=== PATIENT | female | born 1965 | race Caucasian/White ===

== ENCOUNTER 2016-10-29 08:16 | Emergency (ER) | payer BC ==
[2016-10-29 08:54] VITALS: BP 129/64
--- NOTE | 2016-10-29 08:58 | UC ---
Respiratory Complaint HPI - HPI Summary HPI Summary: SINCE YESTERDAY, HEADACHE AND BODYACHES. NO COUGH, FEVER OR CHILLS. 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 NO N/V/D. Started with ORTA yesterday, mostly over her forehead. Of note, she has not had meningitis vaccine since 2009 as she was told she only needed 1x vaccine, but has had pneumonia vaccine within 5 yrs. Dtr and grandson both have had meningitis in past. she denies any stiff neck, nausea or photophobia. - History of Current Complaint Chief Complaint: UCGeneralIllness Stated Complaint: ACHY HEAD CONGESTION Time Seen by Provider: 10/29/16 08:49 Hx Last Menstrual Period: UTERINE ABLATION TWO YEARS AGO - Allergies/Home Medications Allergies/Adverse Reactions: Allergies Allergy/AdvReac Type Severity Reaction Status Date / Time Ipratropium [From Atrovent] Allergy Severe Difficulty Verified 10/29/16 08:43 Breathing Bee Venom Allergy Shortness Verified 10/29/16 08:43 of Breath Penicillins Allergy Unknown Verified 10/29/16 08:43 Reaction Details Sulfa Drugs Allergy Unknown Verified 10/29/16 08:43 Reaction Details Home Medications: Home Medications Naproxen Sodium 440 mg PO Q12H PRN 10/29/16 [History Confirmed 10/29/16] PMH/Surg Hx/FS Hx/Imm Hx Previously Healthy: Yes Endocrine History Of: Reports: Diabetes Respiratory History Of: Reports: Asthma - Surgical History Surgical History: Yes Surgery Procedure, Year, and Place: Uterine Ablation, 2014, [place]; Spleenectomy s/p Splenic Artery Aneurysm, 2009, [facility]; Cholecystectomy, 2006, [place]; C-Sections, 1983 1988 1997; Tonsillectomy, ~1979, [place] - Family History Known Family History: Positive: Hypertension, Other - no asthma or lung ca in family. Dtr and grandson meningitis survivors. - Social History Alcohol Use: Rare Substance Use Type: None Smoking Status (MU): Light Every Day Tobacco Smoker Type: Cigarettes Amount Used/How Often: 3 CIGS A DAY Length of Time of Smoking/Using Tobacco: On and Off for 36 Years Have You Smoked in the Last Year: Yes When Did the Patient Quit Smoking/Using Tobacco: 09/19/15 - Immunization History Most Recent Influenza Vaccination: Not the 2016/2016 Season Review of Systems Constitutional: Chills, Fatigue Skin: Negative Eyes: Negative ENT: Negative Respiratory: Negative Cardiovascular: Negative Gastrointestinal: Negative Genitourinary: Negative Motor: Negative Neurovascular: Negative Musculoskeletal: Negative Neurological: Headache - over forehead only, worse with bending fwd. Psychological: Negative All Other Systems Reviewed And Are Negative: Yes Physical Exam Triage Information Reviewed: Yes Appearance: Well-Nourished, Ill-Appearing - mild distress Vital Signs: Initial Vital Signs Temp 98 F 10/29/16 08:46 Pulse 64 10/29/16 08:46 Resp 18 10/29/16 08:46 BP 129/64 10/29/16 08:46 Pulse Ox 100 10/29/16 08:46 Vital Signs Reviewed: Yes Eye Exam: Normal ENT: Positive: Hearing grossly normal, Pharynx normal, TMs normal, Other: - + b/ l frontal and maxillary tenederness Dental Exam: Normal Neck exam: Normal Neck: Positive: Supple, Nontender, No Lymphadenopathy Respiratory Exam: Normal Respiratory: Positive: Lungs clear, Normal breath sounds, No respiratory distress, No accessory muscle use Cardiovascular Exam: Normal Cardiovascular: Positive: RRR, No Murmur, Pulses Normal, Brisk Capillary Refill Abdominal Exam: Normal Abdomen Description: Positive: Nontender, Soft Musculoskeletal Exam: Normal Neurological Exam: Normal Psychological Exam: Normal Skin Exam: Normal UC Diagnostic Evaluation - Laboratory O2 Sat by Pulse Oximetry: 100 Respiratory Course/Dx - Course Course Of Treatment: Rapid flu is neg. She has taken cephalosporins without any issues in past. discussed low risk of allergic rxn with PCN allergy. watch for any signs of allergic reaction that are reviewed today and seek immediate medical care if such occurs. - Differential Dx/Diagnosis Differential Diagnosis/HQI/PQRI: Influenza, Sinusitis, Other - Viral syndrome Provider Diagnoses: sinusitis Discharge - Discharge Plan Condition: Stable Disposition: HOME Prescriptions: Cefdinir [Cefdinir 300 MG CAP] 300 mg PO BID #20 cap Patient Education Materials: Sinusitis (ED) Forms: *Work Release Referrals: Nela Castillo MD [Primary Care Provider] - 3 Days Additional Instructions: It is strongly recommended that you get meningitis vaccine and pneumonia vaccines every 5 yrs due to splenectomy. you should make an appt at your PCP to have this done as soon as your symptoms have all resolved. I have printed the guidelines for you. Make sure that you take a probiotic every day while on the antibiotic.
== END 2016-10-29 10:04 | disposition home or self-care (01) ==
LOC: UCCORT 08:16
DX: J32.9 Chronic sinusitis, unspecified (principal); Z88.0 Allergy status to penicillin; Z88.2 Allergy status to sulfonamides; Z90.49 Acquired absence of other specified parts of digestive tract; Z90.81 Acquired absence of spleen; F17.210 Nicotine dependence, cigarettes, uncomplicated
CPT/HCPCS: 87502; 99212; G0463

== ENCOUNTER 2016-12-28 19:13 | Emergency (ER) | payer BC ==
[2016-12-28 19:31] VITALS: BP 131/78
--- NOTE | 2016-12-28 19:39 | UC ---
Throat Pain/Nasal Teo HPI - HPI Summary HPI Summary: incrasing sinus pressure and cough with wheezing, escalated today - History of Current Complaint Chief Complaint: UCRespiratory Stated Complaint: SINUSES Time Seen by Provider: 12/28/16 19:29 Hx Obtained From: Patient Hx Last Menstrual Period: ablation ?: No Onset/Duration: Sudden Onset, Lasting Days Severity: Moderate Associated Signs & Symptoms: Positive: Wheezing, Hoarseness, Sinus Discomfort, Nasal Discharge - Epiglottits Risk Factors Epiglottis Risk Factors: Negative - Allergies/Home Medications Allergies/Adverse Reactions: Allergies Allergy/AdvReac Type Severity Reaction Status Date / Time Ipratropium [From Atrovent] Allergy Severe Difficulty Verified 10/29/16 08:43 Breathing Bee Venom Allergy Shortness Verified 10/29/16 08:43 of Breath Penicillins Allergy Unknown Verified 10/29/16 08:43 Reaction Details Sulfa Drugs Allergy Unknown Verified 10/29/16 08:43 Reaction Details PMH/Surg Hx/FS Hx/Imm Hx Previously Healthy: Yes Endocrine History Of: Reports: Diabetes Respiratory History Of: Reports: Asthma - Surgical History Surgical History: Yes Surgery Procedure, Year, and Place: Uterine Ablation, 2014, [place]; Spleenectomy s/p Splenic Artery Aneurysm, 2009, [facility]; Cholecystectomy, 2006, [place]; C-Sections, 1983 1988 1997; Tonsillectomy, ~1978, [place] - Family History Known Family History: Positive: Hypertension, Other - no asthma or lung ca in family. Dtr and grandson meningitis survivors. - Social History Alcohol Use: Rare Substance Use Type: None Smoking Status (MU): Light Every Day Tobacco Smoker Type: Cigarettes Amount Used/How Often: 3 CIGS A DAY Length of Time of Smoking/Using Tobacco: On and Off for 36 Years Have You Smoked in the Last Year: Yes When Did the Patient Quit Smoking/Using Tobacco: 09/19/15 - Immunization History Most Recent Influenza Vaccination: Not the 2016/2016 Season Review of Systems Constitutional: Chills, Fatigue Skin: Negative Eyes: Negative ENT: Sore Throat, Ear Ache, Nasal Discharge Respiratory: Shortness Of Breath, Cough Cardiovascular: Negative Gastrointestinal: Negative Genitourinary: Negative Motor: Negative Neurovascular: Negative Musculoskeletal: Negative Neurological: Headache Psychological: Negative All Other Systems Reviewed And Are Negative: Yes Physical Exam Triage Information Reviewed: Yes Appearance: Well-Nourished, Ill-Appearing, Pain Distress Vital Signs: Initial Vital Signs Temp 96.8 F 12/28/16 19:28 Pulse 68 12/28/16 19:28 Resp 16 12/28/16 19:28 BP 131/78 12/28/16 19:28 Pulse Ox 100 12/28/16 19:28 Vital Signs Reviewed: Yes Eye Exam: Normal Eyes: Positive: Conjunctiva Inflamed, Other: - sclear red and eyes itchy ENT Exam: Normal ENT: Positive: Pharyngeal erythema, Nasal congestion, Nasal drainage, TM bulging Dental Exam: Normal Neck exam: Normal Neck: Positive: Supple, Nontender, No Lymphadenopathy Respiratory Exam: Normal Respiratory: Positive: Chest non-tender, No accessory muscle use, Wheezing, Inspiration Cardiovascular Exam: Normal Cardiovascular: Positive: RRR, No Murmur, Pulses Normal Abdominal Exam: Normal Abdomen Description: Positive: Nontender, No Organomegaly, Soft Bowel Sounds: Positive: Present Musculoskeletal Exam: Normal Musculoskeletal: Positive: Strength Intact, ROM Intact, No Edema Neurological Exam: Normal Neurological: Positive: Alert, Muscle Tone Normal Psychological Exam: Normal Skin Exam: Normal Throat Pain/Nasal Course/Dx - Course Course Of Treatment: hx obtained, exam performed, meds reviewed, treated for sinusitis and wheezing - Differential Dx/Diagnosis Differential Diagnosis/HQI/PQRI: Laryngitis, Otitis Media, Pharyngitis, Sinusitis, URI Provider Diagnoses: wheezing. sinusitis Discharge - Discharge Plan Condition: Stable Disposition: HOME Prescriptions: Azithromycin TAB* [Zithromax TAB (Z-ZAINAB) 250 mg #6 tabs] 2 tab PO .TODAY, THEN 1 DAILY #1 zainab predniSONE TAB* [Deltasone TAB*] 40 mg PO DAILY #14 tab Patient Education Materials: Sinusitis (ED) Referrals: Nela Castillo MD [Primary Care Provider] - Additional Instructions: 1. take the medication as prescribed 2. increase your fluid intake and get plenty of rest.
== END 2016-12-28 19:48 | disposition home or self-care (01) ==
LOC: UCCORT 19:13
DX: J32.9 Chronic sinusitis, unspecified (principal); J45.909 Unspecified asthma, uncomplicated; E11.9 Type 2 diabetes mellitus without complications; Z90.81 Acquired absence of spleen; Z90.49 Acquired absence of other specified parts of digestive tract; Z88.0 Allergy status to penicillin; Z88.2 Allergy status to sulfonamides; Z88.8 Allergy status to other drugs, medicaments and biological substances; Z91.030 Bee allergy status; Z72.0 Tobacco use
CPT/HCPCS: 99212; G0463

== ENCOUNTER 2017-03-04 09:54 | Emergency (ER) | payer BC ==
[2017-03-04 10:24] VITALS: BP 123/74
--- NOTE | 2017-03-04 10:37 | UC ---
Throat Pain/Nasal Teo HPI - HPI Summary HPI Summary: has had sinus symptoms for a number of days now with right otalgia and right upper gum and dental pain low energy hx splenectomy no f/c - History of Current Complaint Chief Complaint: UCHeadache Stated Complaint: SINUS HEADACHE RIGHT EAR COMPLAINT Time Seen by Provider: 03/04/17 10:11 Hx Obtained From: Patient Hx Last Menstrual Period: ablation Onset/Duration: Gradual Onset, Lasting Days Severity: Moderate Pain Intensity: 6 Pain Scale Used: 0-10 Numeric Cough: None Associated Signs & Symptoms: Positive: Sinus Discomfort, Nasal Discharge - Epiglottits Risk Factors Epiglottis Risk Factors: Negative - Allergies/Home Medications Allergies/Adverse Reactions: Allergies Allergy/AdvReac Type Severity Reaction Status Date / Time Ipratropium [From Atrovent] Allergy Severe Difficulty Verified 03/04/17 10:03 Breathing Bee Venom Allergy Shortness Verified 03/04/17 10:03 of Breath Penicillins Allergy Unknown Verified 03/04/17 10:03 Reaction Details Sulfa Drugs Allergy Unknown Verified 03/04/17 10:03 Reaction Details PMH/Surg Hx/FS Hx/Imm Hx Previously Healthy: Yes - Surgical History Surgical History: Yes Surgery Procedure, Year, and Place: Uterine Ablation, 2014, [place]; Spleenectomy s/p Splenic Artery Aneurysm, 2009, [facility]; Cholecystectomy, 2006, [place]; C-Sections, 1983 1988 1997; Tonsillectomy, ~1978, [place] - Family History Known Family History: Positive: Hypertension, Other - no asthma or lung ca in family. Dtr and grandson meningitis survivors. - Social History Alcohol Use: None Substance Use Type: None Smoking Status (MU): Light Every Day Tobacco Smoker Type: Cigarettes Amount Used/How Often: 3 CIGS A DAY Length of Time of Smoking/Using Tobacco: On and Off for 36 Years Have You Smoked in the Last Year: Yes When Did the Patient Quit Smoking/Using Tobacco: 09/19/15 - Immunization History Most Recent Influenza Vaccination: Not the 2016/2016 Season Review of Systems Constitutional: Negative Skin: Negative Eyes: Negative ENT: Dental Pain, Ear Ache, Nasal Discharge, Sinus Congestion, Sinus Pain/ Tenderness Respiratory: Cough Cardiovascular: Negative Gastrointestinal: Negative Genitourinary: Negative Motor: Negative Neurovascular: Negative Musculoskeletal: Negative Neurological: Negative Psychological: Negative All Other Systems Reviewed And Are Negative: Yes Physical Exam Triage Information Reviewed: Yes Appearance: Well-Appearing, No Pain Distress, Well-Nourished Vital Signs: Initial Vital Signs Temp 99 F 03/04/17 10:08 Pulse 79 03/04/17 10:08 Resp 18 03/04/17 10:08 BP 123/74 03/04/17 10:08 Pulse Ox 98 03/04/17 10:08 Eyes: Positive: Conjunctiva Clear ENT: Positive: TMs normal. Negative: Hearing grossly normal, Nasal congestion, Nasal drainage, Tonsillar swelling, Tonsillar exudate, Trismus, Muffled/hoarse voice Neck: Positive: Nontender, No Lymphadenopathy Respiratory: Positive: Lungs clear, Normal breath sounds, No respiratory distress, No accessory muscle use Cardiovascular: Positive: RRR, No Murmur Musculoskeletal: Positive: ROM Intact, No Edema Neurological: Positive: Alert Psychological: Positive: Age Appropriate Behavior Skin Exam: Normal Throat Pain/Nasal Course/Dx - Differential Dx/Diagnosis Provider Diagnoses: acute sinusitis Discharge - Discharge Plan Condition: Stable Disposition: HOME Prescriptions: Clarithromycin TAB* [Biaxin 500 MG TAB*] 500 mg PO BID #20 tab Fluticasone NASAL SPRAY 50MCG* [Flonase NASAL SPRAY 50MCG*] 2 spray BOTH NARES DAILY #1 btl Patient Education Materials: Sinusitis (ED) Forms: *Work Release Referrals: Nela Castillo MD [Primary Care Provider] - 4 Days
== END 2017-03-04 10:49 | disposition home or self-care (01) ==
LOC: UCCORT 09:54
DX: J01.90 Acute sinusitis, unspecified (principal); F17.210 Nicotine dependence, cigarettes, uncomplicated
CPT/HCPCS: 99212; G0463

== ENCOUNTER 2017-04-02 20:15 | Emergency (ER) | payer BC ==
[2017-04-02 20:24] VITALS: BP 145/85
--- NOTE | 2017-04-02 20:36 | UC ---
Back Pain HPI - HPI Summary HPI Summary: 51 YEAR OLD FEMALE WITH A PAST SURGICAL HISTORY OF A SPLENIC VS AORTA ANEURYSM PRESENTS WITH COMPLAINS OF SEVERE CHEST PAIN WITH RADIATION BETWEEN THE SHOULDER BLADES. - History of Current Complaint Chief Complaint: UCBackPain Stated Complaint: UPPER RT BACK PAIN Time Seen by Provider: 04/02/17 20:26 Hx Obtained From: Patient Hx Last Menstrual Period: tubal, ablation 2013 Onset/Duration: Sudden Onset Timing: Constant Severity Initially: Moderate Severity Currently: Moderate Pain Scale Used: 0-10 Numeric - 5 Character: Sharp Aggravating: Movement - Allergies/Home Medications Allergies/Adverse Reactions: Allergies Allergy/AdvReac Type Severity Reaction Status Date / Time Ipratropium [From Atrovent] Allergy Severe Difficulty Verified 04/02/17 20:31 Breathing Bee Venom Allergy Shortness Verified 04/02/17 20:31 of Breath Penicillins Allergy Unknown Verified 04/02/17 20:31 Reaction Details Sulfa Drugs Allergy Unknown Verified 04/02/17 20:31 Reaction Details PMH/Surg Hx/FS Hx/Imm Hx Previously Healthy: Yes - Surgical History Surgical History: Yes Surgery Procedure, Year, and Place: Uterine Ablation, 2014, [place]; Spleenectomy s/p Splenic Artery Aneurysm, 2009, [facility]; Cholecystectomy, 2006, [place]; C-Sections, 1983 1988 1997; Tonsillectomy, ~1978, [place] - Family History Known Family History: Positive: Hypertension, Other - no asthma or lung ca in family. Dtr and grandson meningitis survivors. - Social History Alcohol Use: Rare Substance Use Type: None Smoking Status (MU): Light Every Day Tobacco Smoker Type: Cigarettes Amount Used/How Often: 3 CIGS A DAY Length of Time of Smoking/Using Tobacco: On and Off for 36 Years Have You Smoked in the Last Year: Yes When Did the Patient Quit Smoking/Using Tobacco: 09/19/15 - Immunization History Most Recent Influenza Vaccination: Not the 2016/2016 Season Review of Systems Constitutional: Negative Skin: Negative Eyes: Negative ENT: Negative Respiratory: Negative Cardiovascular: Chest Pain Gastrointestinal: Negative Genitourinary: Negative Motor: Negative Neurovascular: Negative Musculoskeletal: Negative Neurological: Negative Psychological: Negative All Other Systems Reviewed And Are Negative: Yes Physical Exam Triage Information Reviewed: Yes Vital Signs: Initial Vital Signs Temp 36.6 C 04/02/17 20:20 Pulse 75 04/02/17 20:20 Resp 14 04/02/17 20:20 BP 145/85 04/02/17 20:20 Pulse Ox 100 04/02/17 20:20 Eye Exam: Normal ENT Exam: Normal Dental Exam: Normal Neck exam: Normal Neck: Positive: 1 Respiratory Exam: Normal Cardiovascular Exam: Normal Abdominal Exam: Normal Musculoskeletal: Positive: Other: - BACK PAIN Neurological Exam: Normal Psychological Exam: Normal Skin Exam: Normal Back Pain Course/Dx - Differential Dx/Diagnosis Provider Diagnoses: CHEST PAIN Discharge - Discharge Plan Condition: Stable Disposition: HOME Patient Education Materials: Chest Pain (ED) Referrals: Nela Castillo MD [Primary Care Provider] - Additional Instructions: PLEASE GO TO ER TO RULE OUT DISSECTION
== END 2017-04-02 20:57 | disposition home or self-care (01) ==
LOC: UCCORT 20:15
DX: R07.89 Other chest pain (principal); M54.6 Pain in thoracic spine; Z88.0 Allergy status to penicillin; Z88.2 Allergy status to sulfonamides; Z88.8 Allergy status to other drugs, medicaments and biological substances; Z91.030 Bee allergy status; Z87.891 Personal history of nicotine dependence
CPT/HCPCS: 93005; 99211; G0463

== ENCOUNTER 2019-11-01 12:12 | Emergency (ER) | payer OTHER ==
[2019-11-01 13:52] VITALS: BP 130/70
--- NOTE | 2019-11-01 14:11 | UC ---
Throat Pain/Nasal Teo HPI - HPI Summary HPI Summary: 54-year-old woman comes in with chief complaint of influenza-like symptoms started 4 days ago. Had a sudden onset of feeling ill with mostly a runny nose and some postnasal drip. Overtime the rhinorrhea has decreased and patient feels like the infection is gone into her chest. Initially she had a fever of 100.7. Since then no more fevers measured. She does have a cough. She denies feeling short of breath. No recent travel no known coronavirus contacts. Patient is asplenic. Has had some body aches. - History of Current Complaint Chief Complaint: UCGeneralIllness Stated Complaint: SINUS, COUGH, CONGESTION, FEVER Time Seen by Provider: 11/01/19 13:53 Hx Last Menstrual Period: tubal, ablation 2013 Pain Intensity: 0 - Allergies/Home Medications Allergies/Adverse Reactions: Allergies Allergy/AdvReac Type Severity Reaction Status Date / Time MS Ipratropium Allergy Severe Difficulty Verified 11/01/19 13:53 [From Atrovent] Breathing esomeprazole [From Nexium] Allergy Unknown Verified 11/01/19 13:53 Reaction Details MS Bee Venom [Bee Venom] Allergy Shortness Verified 11/01/19 13:53 of Breath MS Penicillins [Penicillins] Allergy Unknown Verified 11/01/19 13:53 Reaction Details MS Sulfa Drugs [Sulfa Drugs] Allergy Unknown Verified 11/01/19 13:53 Reaction Details Home Medications: Home Medications Albuterol HFA INHALER* [Ventolin HFA Inhaler*] 1 - 2 puff INH Q4H PRN 01/29/13 [ History Confirmed 11/01/19] LoraTADine TAB(NF) [Claritin 10 MG TAB(NF)] 10 mg PO BEDTIME 01/29/13 [History Confirmed 11/01/19] EPINEPHrine PEN ADULT(NF) [Epipen ADULT(NF)] 0.3 mg IM ONCE 06/10/13 [History Confirmed 11/01/19] Acetaminophen [Tylenol] 1,000 mg PO Q6H PRN 07/30/13 [History Confirmed 11/01/19 ] metFORMIN* [Glucophage 1000 MG TAB *] 1,000 mg PO BID 05/14/15 [History Confirmed 11/01/19] Multivitamins/Minerals TAB* [Thera M Plus TAB*] 1 tab PO DAILY 12/18/15 [ History Confirmed 11/01/19] Aspirin 81 mg CHEW TAB* 81 mg PO DAILY 11/01/19 [History Confirmed 11/01/19] Clopidogrel TAB* [Plavix TAB*] 1 dose PO DAILY 11/01/19 [History Confirmed 10/31] DOXYcycline CAP(*) [DOXYcycline 100MG CAP(*)] 100 mg PO BID #20 cap 11/01/19 [Rx ] Dapagliflozin Propanediol [Farxiga] 5 mg PO DAILY 11/01/19 [History Confirmed ] Insulin Glargine,Hum.rec.anlog [Lantus 100 units/ml 10 ml VIAL (*)] 44 units SUBCUT DAILY 11/01/19 [History Confirmed 11/01/19] Metoprolol Tartrate TAB* [Lopressor TAB*] 25 mg PO DAILY 11/01/19 [History Confirmed 11/01/19] Rosuvastatin (NF) [Crestor (NF)] 10 mg PO DAILY 11/01/19 [History Confirmed ] PMH/Surg Hx/FS Hx/Imm Hx Previously Healthy: Yes - asplenic Endocrine History: Diabetes, Dyslipidemia Cardiovascular History: Hypertension Respiratory History: Asthma - Surgical History Surgical History: Yes Surgery Procedure, Year, and Place: Uterine Ablation, 2014, [place]; Spleenectomy s/p Splenic Artery Aneurysm, 2009, [facility]; Cholecystectomy, 2006, [place]; C-Sections, 1983 1988 1997; Tonsillectomy, ~1979, [place] - Family History Known Family History: Positive: Hypertension, Other - no asthma or lung ca in family. Dtr and grandson meningitis survivors. - Social History Alcohol Use: Rare Substance Use Type: None Smoking Status (MU): Former Smoker Type: Cigarettes Amount Used/How Often: quit 2 years ago Length of Time of Smoking/Using Tobacco: On and Off for 36 Years Have You Smoked in the Last Year: Yes When Did the Patient Quit Smoking/Using Tobacco: 09/19/15 - Immunization History Most Recent Influenza Vaccination: Not the 2016/2016 Season Review of Systems All Other Systems Reviewed And Are Negative: Yes Constitutional: Positive: Fever, Other - SEE HPI Skin: Positive: Negative Eyes: Positive: Negative ENT: Positive: Nasal Discharge, Sinus Congestion Respiratory: Positive: Cough, Other - SEE HPI Cardiovascular: Positive: Negative Gastrointestinal: Positive: Negative Motor: Positive: Negative Neurovascular: Positive: Negative Musculoskeletal: Positive: Myalgia Neurological/Mental Status: Positive: Negative Psychological: Positive: Negative Is Patient Immunocompromised?: Yes - asplenic Physical Exam Triage Information Reviewed: Yes Appearance: No Pain Distress, Well-Nourished, Ill-Appearing - MILD Vital Signs: Initial Vital Signs Temp 97.9 F 11/01/19 13:47 Pulse 76 11/01/19 13:47 Resp 18 11/01/19 13:47 BP 130/70 11/01/19 13:47 Pulse Ox 100 11/01/19 13:47 Vital Signs Reviewed: Yes Eye Exam: Normal Eyes: Positive: Conjunctiva Clear ENT: Positive: Pharyngeal erythema, Nasal congestion, Nasal drainage, TMs normal Neck: Positive: Supple Respiratory: Positive: Lungs clear, Normal breath sounds, No respiratory distress Cardiovascular: Positive: RRR Musculoskeletal: Positive: Strength Intact, ROM Intact Neurological: Positive: Alert, Muscle Tone Normal Psychological: Positive: Normal Response To Family, Age Appropriate Behavior Skin Exam: Normal Throat Pain/Nasal Course/Dx - Course Course Of Treatment: At this time patient does not have a fever and does not feel short of breath. She did have a fever reported on the first day of her illness 4 days ago. No known sick contacts. Patient does have a cough. Discussed the signs and symptoms of coronal virus. At this time without the shortness of breath or fever patient's symptoms are not consistent with covid 19. Plan is to treat with an antibiotic because the patient is potentially compromise because she is asplenic and follow-up with her primary care physician. Also let the patient know that if she got worse with shortness of breath and fever she needed to get reevaluated again right away in the emergency department. - Differential Dx/Diagnosis Provider Diagnosis: Bronchitis Discharge ED - Sign-Out/Discharge Documenting (check all that apply): Patient Departure All imaging exams completed and their final reports reviewed: No Studies - Discharge Plan Condition: Stable Disposition: HOME Prescriptions: DOXYcycline CAP(*) [DOXYcycline 100MG CAP(*)] 100 mg PO BID #20 cap Patient Education Materials: Acute Bronchitis (ED) Forms: *Work Release Referrals: Nela Castillo MD [Primary Care Provider] - Additional Instructions: FOLLOW UP WITH YOUR DOCTOR IF NOT COMPLETELY IMPROVED. GO TO THE EMERGENCY DEPARTMENT IF WORSE; FEVER, SHORTNESS OF BREATH OR ANY QUESTIONS OR CONCERNS. - Billing Disposition and Condition Condition: STABLE Disposition: Home
[2019-11-01 14:25] LABS: Influenza A Molecular Negative (Negative); Influenza B Molecular Negative (Negative)
== END 2019-11-01 14:50 | disposition home or self-care (01) ==
LOC: UCCORT 12:12
DX: J45.909 Unspecified asthma, uncomplicated (principal); J39.2 Other diseases of pharynx; I10 Essential (primary) hypertension; E78.5 Hyperlipidemia, unspecified; E11.9 Type 2 diabetes mellitus without complications; Z79.84 Long term (current) use of oral hypoglycemic drugs; Z79.4 Long term (current) use of insulin; Z79.899 Other long term (current) drug therapy; Z87.891 Personal history of nicotine dependence; Z88.0 Allergy status to penicillin; Z91.030 Bee allergy status; Z88.2 Allergy status to sulfonamides; Z88.8 Allergy status to other drugs, medicaments and biological substances
CPT/HCPCS: 99212; G0463